=== PATIENT | female | born 1995 | race Caucasian/White ===

== ENCOUNTER 2019-05-26 22:26 | Inpatient (IN) | payer BC ==
[~2019-05-26 22:26] MED LIST: Lidocaine 1.5% with EPINEPHrine 1:200,000 5 ML Amp ONE
[2019-05-26] MEDS ORDERED: Nalbuphine 10 MG/ML Syringe IVPUSH PRN (23:26)
[2019-05-26] MEDS ORDERED: Sodium Chloride 0.9% 10 ML Syringe FLUSH PRN (23:26)
[2019-05-26] MEDS ORDERED: Oxytocin/Lactated Ringers 10 UNIT/1,000 ML BAG IV SCH (23:30)
[2019-05-27] MEDS ORDERED: Ampicillin 2 GM in Sodium Chloride 0.9% 100 ML IV ONE ×2
[2019-05-27] MEDS: Lactated Ringers 1,000 ML IV SCH ×3 (00:39→06:45)
[2019-05-27] MEDS ORDERED: Bupivacaine/fentaNYL/NS 100 ML Bag EPIDUR PRN (04:10)
[2019-05-27] MEDS ORDERED: fentaNYL 100 MCG/2 ML SDV EPIDUR PRN (04:10)
[2019-05-27] MEDS ORDERED: diphenhydrAMINE 50 MG/ML SDV IVPUSH PRN (04:10)
[2019-05-27] MEDS ORDERED: ePHEDrine 50 MG/ML SDV IVPUSH PRN (04:10)
[2019-05-27] MEDS: Ampicillin 1 GM in Sodium Chloride 0.9% 100 ML IV SCH ×3 (04:14→12:08)
--- NOTE | 2019-05-27 04:50 | PCM.PREANE ---
Preanesthetic Assessment - Anesthesia/Transfusion/Family Hx Anesthesia History: Prior Anesthesia Without Reaction Transfusion History: No Prior Transfusion(s) - Review of Systems General: No Symptoms Pulmonary: No Symptoms Cardiovascular: No Symptoms Gastrointestinal: No Symptoms Neurological: No Symptoms Other: Reports: None - Physical Assessment Vital Signs: Last Vital Signs Temp 98.6 F 05/26/19 23:26 Pulse 86 05/26/19 23:26 Resp 14 05/26/19 23:26 BP 119/73 05/26/19 23:26 Pulse Ox 100 05/26/19 23:26 Height: 1.65 m Weight: 109.769 kg ASA Class: 3 (morbid obesity) Mental Status: Alert & Oriented x3 Airway Class: Mallampati = 2 Dentition: Reports: Normal Dentition Thyro-Mental Finger Breadths: 3 Mouth Opening Finger Breadths: 3 ROM/Head Extension: Full Lungs: Clear to Auscultation Cardiovascular: Regular Rate, Regular Rhythm - Lab Values: Laboratory Last Values WBC 13.95 K/mm3 (3.98-10.04) H 05/27/19 00:06 RBC 4.88 M/mm3 (3.98-5.22) 05/27/19 00:06 Hgb 13.4 gm/dl (11.2-15.7) 05/27/19 00:06 Hct 41.3 % (34.1-44.9) 05/27/19 00:06 MCV 84.6 fl (79.4-94.8) 05/27/19 00:06 MCH 27.5 pg (25.6-32.2) 05/27/19 00:06 MCHC 32.4 g/dl (32.2-35.5) 05/27/19 00:06 RDW Std Deviation 41.9 fL (36.4-46.3) 05/27/19 00:06 Plt Count 193 K/mm3 (182-369) 05/27/19 00:06 MPV 10.1 fl (9.4-12.3) 05/27/19 00:06 Neut % (Auto) 74.5 % (34.0-71.1) H 05/27/19 00:06 Lymph % (Auto) 16.7 % (19.3-51.7) L 05/27/19 00:06 Swisher % (Auto) 7.6 % (4.7-12.5) 05/27/19 00:06 Eos % (Auto) 0.7 (0.7-5.8) 05/27/19 00:06 Baso % (Auto) 0.1 % (0.1-1.2) 05/27/19 00:06 Neut # (Auto) 10.39 K/mm3 (1.56-6.13) H 05/27/19 00:06 Lymph # (Auto) 2.33 K/mm3 (1.18-3.74) 05/27/19 00:06 Swisher # (Auto) 1.06 K/mm3 (0.24-0.36) H 05/27/19 00:06 Eos # (Auto) 0.10 K/mm3 (0.04-0.36) 05/27/19 00:06 Baso # (Auto) 0.02 K/mm3 (0.01-0.08) 05/27/19 00:06 - Allergies Allergies/Adverse Reactions: Allergies Allergy/AdvReac Type Severity Reaction Status Date / Time No Known Allergies Allergy Verified 05/26/19 23:31 - Acknowledgements Anesthesia Type Planned: Epidural Pt an Appropriate Candidate for the Planned Anesthesia: Yes Alternatives and Risks of Anesthesia Discussed w Pt/Guardian: Yes Pt/Guardian Understands and Agrees with Anesthesia Plan: Yes PreAnesthesia Questionnaire HEENT History: Reports: Impaired Vision Other HEENT History: wears glasses Cardiovascular History: Reports: None Respiratory History: Reports: None Gastrointestinal History: Reports: None Genitourinary History: Reports: None 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 Took Prozac until 2018 and then d/c 'd med. During late , requested a refill secondary to some "moodiness " (per pt) and feeling anxious and isolating, and med prescribed for pt to begin taking after delivery by Dr. Guillermo. Pt denies any SI, or thoughts of harming self or others. Endocrine/Metabolic History: Reports: None, Obesity/BMI 30+ (morbid obesity) Hematologic History: Reports: None Oncologic (Cancer) History: Reports: None Dermatologic History: Reports: Other (See Below) Other Dermatologic History: hx acne - Infectious Disease History Other Infectious Disease History: GBS + - Past Surgical History Head Surgeries/Procedures: Reports: None HEENT Surgical History: Reports: Oral Surgery Other HEENT Surgeries/Procedures: wisdom teeth extracted Cardiovascular Surgical History: Reports: None Respiratory Surgical History: Reports: None GI Surgical History: Reports: None Female Surgical History: Reports: D&C Other Female Surgeries/Procedures: 03/2018 SAB followed by D&C Endocrine Surgical History: Reports: None Neurological Surgical History: Reports: None Musculoskeletal Surgical History: Reports: None Oncologic Surgical History: Reports: None Dermatological Surgical History: Reports: None - SUBSTANCE USE Smoking Status *Q: Never Smoker Second Hand Smoke Exposure: No Recreational Drug Use History: No - CURRENT (IN HOUSE) MEDS Current Meds: Current Medications Diphenhydramine HCl (Benadryl) 25 mg IVPUSH Q6H PRN PRN Reason: pruritis Ephedrine Sulfate (Ephedrine Sulfate) 5 mg IVPUSH ASDIRECTED PRN PRN Reason: Hypotension Fentanyl (Sublimaze) 100 mcg EPIDUR Q3H PRN PRN Reason: Pain Fentanyl/Bupivacaine HCl (Fentanyl/Bupivacaine/Ns 2 Mcg-0.125% 100 Ml) 100 ml EPIDUR ASDIRECTED PRN PRN Reason: Pain Lactated Ringer's (Ringers, Lactated) 1,000 mls @ 100 mls/hr IV ASDIRECTED SANCHEZ Last Infusion: 05/27/19 04:10 Dose: 999 mls/hr Oxytocin/Lactated Ringer's (Pitocin In Lr 10 Units/1,000 Ml) 10 unit in 1,000 mls @ 500 mls/hr IV .CONTINUOUS [facility] Ampicillin Sodium 1 gm/ Sodium (Chloride) 100 mls @ 200 mls/hr IV Q4H [facility] Last Admin: 05/27/19 04:14 Dose: 200 mls/hr Nalbuphine HCl (Nubain) 10 mg IVPUSH Q2H PRN PRN Reason: Pain Sodium Chloride (Saline Flush) 10 ml FLUSH ASDIRECTED PRN PRN Reason: Keep Vein Open Discontinued Medications Ampicillin Sodium 2 gm/ Sodium (Chloride) 100 mls @ 200 mls/hr IV ONETIME ONE Stop: 05/27/19 00:29 Last Admin: 05/27/19 00:42 Dose: 200 mls/hr
--- NOTE | 2019-05-27 07:43 | PCM.LDHP ---
L&D History of Present Illness - General Date of Service: 05/27/19 Admit Problem/Dx: Patient Status Order with Admit Dx/Problem 05/26/19 22:42 Patient Status [ADT] Routine 05/26/19 23:26 Patient Status [ADT] Routine Admission Diagnosis/Problem Admission Diagnosis/Problem Source of Information: Patient History Limitations: Reports: No Limitations - History of Present Illness Introduction:: Patient is a 23 y/o currently at 37 5/7 wks who presented late last night in labor. Contractions started yesterday PM around 1900. When in L&D around 2300 cervix was about 5 cm dilated. 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 : 2 Para: 0 LMP (Approximate): Psychiatric History: Reports: Anxiety, Depression Endocrine/Metabolic History: Reports: Obesity/BMI 30+ - Past Surgical History HEENT Surgical History: Reports: Oral Surgery Other HEENT Surgeries/Procedures: wisdom teeth extracted Female Surgical History: Reports: D&C Other Female Surgeries/Procedures: 03/2018 SAB followed by D&C Social & Family History - Family History Family Medical History: Noncontributory - Tobacco Use Smoking Status *Q: Never Smoker Second Hand Smoke Exposure: No - Caffeine Use Caffeine Use: Reports: Coffee Other Caffeine Use: 1 cup per day - Alcohol Use Alcohol Use History: No - Recreational Drug Use Recreational Drug Use: No H&P Review of Systems - Review of Systems: Review Of Systems: See Below General: Reports: No Symptoms Pulmonary: Reports: No Symptoms Cardiovascular: Reports: No Symptoms Gastrointestinal: Reports: No Symptoms Genitourinary: Reports: No Symptoms Musculoskeletal: Reports: No Symptoms Psychiatric: Reports: No Symptoms Neurological: Reports: No Symptoms L&D Exam - Exam Exam: See Below - Vital Signs Vital Signs: Last Vital Signs Temp 37.0 C 05/26/19 23:26 Pulse 86 05/26/19 23:26 Resp 14 05/26/19 23:26 BP 119/73 05/26/19 23:26 Pulse Ox 100 05/26/19 23:26 Weight: 109.769 kg - OB Specific Contraction Intensity: Moderate Movement: Active Heart Tones: Present Heart Tones per Min: 150 Heart Rate (FHR) Variability: Moderate (6-25 bmp) Presentation: Vertex - Sarabia Score Sarabia Score Cervix Position: Anterior Sarabia Score Consistency: Soft Sarabia Score Effacement: >80% Sarabia Score Dilation: > 5 cm Sarabia Score 's Station: -1 ,0 Sarabia Score Total: 12 - Exam General: Alert, Oriented, Cooperative Lungs: Clear to Auscultation, Normal Respiratory Effort Cardiovascular: Regular Rate, Regular Rhythm GI/Abdominal Exam: Soft, Non-Tender Genitourinary: Normal external exam Extremities: Normal Inspection Skin: Warm, Dry, Intact - Patient Data Lab Results Last 24 hrs: Laboratory Results - last 24 hr 05/27/19 Range/Units 00:06 WBC 13.95 H (3.98-10.04) K/mm3 RBC 4.88 (3.98-5.22) M/mm3 Hgb 13.4 (11.2-15.7) gm/dl Hct 41.3 (34.1-44.9) % MCV 84.6 (79.4-94.8) fl MCH 27.5 (25.6-32.2) pg MCHC 32.4 (32.2-35.5) g/dl RDW Std Deviation 41.9 (36.4-46.3) fL Plt Count 193 (182-369) K/mm3 MPV 10.1 (9.4-12.3) fl Neut % (Auto) 74.5 H (34.0-71.1) % Lymph % (Auto) 16.7 L (19.3-51.7) % [place]cer % (Auto) 7.6 (4.7-12.5) % Eos % (Auto) 0.7 (0.7-5.8) Baso % (Auto) 0.1 (0.1-1.2) % Neut # (Auto) 10.39 H (1.56-6.13) K/mm3 Lymph # (Auto) 2.33 (1.18-3.74) K/mm3 [place] # (Auto) 1.06 H (0.24-0.36) K/mm3 Eos # (Auto) 0.10 (0.04-0.36) K/mm3 Baso # (Auto) 0.02 (0.01-0.08) K/mm3 Result Diagrams: 05/27/19 00:06 - Problem List (1) 37 weeks gestation of SNOMED Code(s): 92987407 ICD Code: Z3A.37 - 37 WEEKS GESTATION OF Status: Acute Current Visit: Yes (2) Normal labor SNOMED Code(s): 72869623 ICD Code: O80 - ENCOUNTER FOR FULL-TERM UNCOMPLICATED DELIVERY; Z37.9 - OUTCOME OF DELIVERY, UNSPECIFIED Status: Acute Current Visit: Yes (3) Rh negative state in antepartum period SNOMED Code(s): 480089894 ICD Code: O26.899 - OTH RELATED CONDITIONS, UNSPECIFIED TRIMESTER; Z67.91 - UNSPECIFIED BLOOD TYPE, RH NEGATIVE Status: Acute Current Visit: Yes (4) GBS (group B Streptococcus carrier), +RV culture, currently SNOMED Code(s): 1306655880034, 149593635, 5816452815662 ICD Code: O99.820 - STREPTOCOCCUS B CARRIER STATE COMPLICATING Status: Acute Current Visit: Yes Problem List Initiated/Reviewed/Updated: Yes Orders Last 24hrs: Active Orders 24 hr Category Date Time Status Patient Status [ADT] Routine ADT 05/26/19 23:26 Active Activity as Tolerated [RC] PFP Care 05/26/19 23:26 Active Communication Order [RC] ASDIRECTED Care 05/26/19 23:26 Active Heart Tones [RC] ASDIRECTED Care 05/26/19 23:27 Active Notify Provider [RC] ASDIRECTED Care 05/27/19 04:10 Active Notify Provider [RC] PFP Care 05/26/19 23:26 Active Notify Provider [RC] PRN Care 05/26/19 23:26 Active Peripheral IV Care [RC] Q2HR Care 05/26/19 23:27 Active Vital Signs [RC] 09,15,21,03 Care 05/26/19 23:26 Active Regular Diet [DIET] Diet 05/26/19 Breakfast Active RAPID PLASMA REAGIN,RPR [CHEM] Routine Lab 05/26/19 23:26 Received Ampicillin 1 gm Med 05/27/19 04:00 Active Sodium Chloride 0.9% [Normal Saline] 100 ml IV Q4H Bupivacaine/fentaNYL/NS [fentaNYL/Bupivacaine/NS 2 MCG- Med 05/27/19 04:10 Active 0.125% 100 ML] 100 ml EPIDUR ASDIRECTED PRN Lactated Ringers [Ringers, Lactated] 1,000 ml Med 05/26/19 23:30 Active IV ASDIRECTED Nalbuphine [Nubain] Med 05/26/19 23:26 Active 10 mg IVPUSH Q2H PRN Oxytocin/Lactated Ringers [Pitocin in LR 10 Units/1,000 Med 05/26/19 23:30 Active ML] 10 unit in 1,000 ml IV .CONTINUOUS Sodium Chloride 0.9% [Saline Flush] Med 05/26/19 23:26 Active 10 ml FLUSH ASDIRECTED PRN diphenhydrAMINE [Benadryl] Med 05/27/19 04:10 Active 25 mg IVPUSH Q6H PRN ePHEDrine [ePHEDrine sulfate] Med 05/27/19 04:10 Active 5 mg IVPUSH ASDIRECTED PRN fentaNYL [Sublimaze] Med 05/27/19 04:10 Active 100 mcg EPIDUR Q3H PRN Electronic Heart Tones Ext w TOCO [WOMSER] Oth 05/26/19 23:26 Ordered Routine Electronic Heart Tones Internal [WOMSER] Per Unit Oth 05/26/19 23:26 Ordered Routine Peripheral IV Insertion Adult [OM.PC] Routine Oth 05/26/19 23:26 Ordered Resuscitation Status Routine Resus Stat 05/26/19 22:41 Ordered Medication Orders Diphenhydramine HCl (Benadryl) 25 mg IVPUSH Q6H PRN PRN Reason: pruritis Ephedrine Sulfate (Ephedrine Sulfate) 5 mg IVPUSH ASDIRECTED PRN PRN Reason: Hypotension Fentanyl (Sublimaze) 100 mcg EPIDUR Q3H PRN PRN Reason: Pain Last Admin: 05/27/19 05:21 Dose: 100 mcg Fentanyl/Bupivacaine HCl (Fentanyl/Bupivacaine/Ns 2 Mcg-0.125% 100 Ml) 100 ml EPIDUR ASDIRECTED PRN PRN Reason: Pain Last Admin: 05/27/19 05:40 Dose: 100 ml Lactated Ringer's (Ringers, Lactated) 1,000 mls @ 100 mls/hr IV ASDIRECTED SANCHEZ Last Admin: 05/27/19 06:45 Dose: 100 mls/hr Infusion: 05/27/19 06:45 Dose: 500 mls/hr Infusion: 05/27/19 05:45 Dose: 500 mls/hr Admin: 05/27/19 05:15 Dose: 999 mls/hr Infusion: 05/27/19 04:49 Dose: 999 mls/hr Infusion: 05/27/19 04:10 Dose: 999 mls/hr Admin: 05/27/19 00:39 Dose: 100 mls/hr Oxytocin/Lactated Ringer's (Pitocin In Lr 10 Units/1,000 Ml) 10 unit in 1,000 mls @ 500 mls/hr IV .CONTINUOUS [facility] Ampicillin Sodium 1 gm/ Sodium (Chloride) 100 mls @ 200 mls/hr IV Q4H [facility] Last Admin: 05/27/19 04:14 Dose: 200 mls/hr Nalbuphine HCl (Nubain) 10 mg IVPUSH Q2H PRN PRN Reason: Pain Sodium Chloride (Saline Flush) 10 ml FLUSH ASDIRECTED PRN PRN Reason: Keep Vein Open Assessment/Plan Comment:: * Labs done on admission * GBS positive, has been receiving ampicillin * Epidural in place * Patient just found to be 9 cm dilated. AROM done. Continue present management * Anticipate * Assess baby blood type following delivery to assess if Rhogam noted
[2019-05-27] MEDS ORDERED: Oxytocin/Lactated Ringers 10 UNIT/1,000 ML BAG IV SCH (10:00)
--- NOTE | 2019-05-27 13:20 | PCM.DEL ---
L & D Note - General Info Date of Service: 05/27/19 - Delivery Note Labor: Augmented by Oxytocin Delivery Outcome: Livebirth Delivery Method: Spontaneous Vaginal Delivery-Single Presentation: Right Occiput Anterior (LOUISE) Nuchal Cord: None Anesthesia Type: Epidural Amniotic Fluid Description: Clear Episiotomy Type: None Laceration: 2nd Degree, Labial (right), Perineal Suture type: Vicryl Suture size: 2-0 Placenta: Intact, Spontaneous Cord: 3 Vessels Estimated Blood Loss: 200 Resuscitation Needed: Yes [place]: Bulb Syringe, Stimulated, Warmed, Warmer Used Delivery Comments (Free Text/Narrative):: Patient found to be complete and began pushing. With maternal pushing effort head delivered from an LOUISE presentation. No nuchal cord present. With gentle downward traction the shoulders and body delivered. placed on maternal abdomen. Cord clamped and cut. Cord blood obtained. Placenta allowed time to separate and expelled intact. Inspection of the perineum showed a 2nd degree perineal laceration and also a right labia tear. These were both reapproximated with running 2-0 vicryl sutures. - General Info Date of Service: 05/27/19 - Patient Data Vitals - Most Recent: Last Vital Signs Temp 37.0 C 05/26/19 23:26 Pulse 86 05/26/19 23:26 Resp 14 05/26/19 23:26 BP 119/73 05/26/19 23:26 Pulse Ox 100 05/26/19 23:26 Weight - Most Recent: 109.769 kg I&O - Last 24 Hours: Intake & Output 05/26/19 05/27/19 05/27/19 22:59 06:59 14:59 Intake Total 2200 Balance 2200 - Problem List & Annotations (1) 37 weeks gestation of SNOMED Code(s): 85457502 Code(s): Z3A.37 - 37 WEEKS GESTATION OF Status: Acute Current Visit: Yes (2) Normal labor SNOMED Code(s): 37723388 Code(s): O80 - ENCOUNTER FOR FULL-TERM UNCOMPLICATED DELIVERY; Z37.9 - OUTCOME OF DELIVERY, UNSPECIFIED Status: Acute Current Visit: Yes (3) Rh negative state in antepartum period SNOMED Code(s): 010198056 Code(s): O26.899 - OTH RELATED CONDITIONS, UNSPECIFIED TRIMESTER; Z67.91 - UNSPECIFIED BLOOD TYPE, RH NEGATIVE Status: Acute Current Visit: Yes (4) GBS (group B Streptococcus carrier), +RV culture, currently SNOMED Code(s): 4023095032790, 217363502, 9810206260986 Code(s): O99.820 - STREPTOCOCCUS B CARRIER STATE COMPLICATING Status: Acute Current Visit: Yes (5) Vaginal delivery SNOMED Code(s): 943433807 Code(s): O80 - ENCOUNTER FOR FULL-TERM UNCOMPLICATED DELIVERY Status: Acute Current Visit: Yes - Problem List Review Problem List Initiated/Reviewed/Updated: Yes - My Orders Last 24 Hours: My Active Orders 05/26/19 22:41 Resuscitation Status Routine 05/26/19 23:26 Patient Status [ADT] Routine Activity as Tolerated [RC] PFP Communication Order [RC] ASDIRECTED Notify Provider [RC] PFP Notify Provider [RC] PRN Vital Signs [RC] 09,15,21,03 RAPID PLASMA REAGIN,RPR [CHEM] Routine Nalbuphine [Nubain] 10 mg IVPUSH Q2H PRN Sodium Chloride 0.9% [Saline Flush] 10 ml FLUSH ASDIRECTED PRN Electronic Heart Tones Ext w TOCO [WOMSER] Routine Electronic Heart Tones Internal [WOMSER] Per Unit Routine Peripheral IV Insertion Adult [OM.PC] Routine 05/26/19 23:27 Heart Tones [RC] ASDIRECTED Peripheral IV Care [RC] Q2HR 05/26/19 23:30 Lactated Ringers [Ringers, Lactated] 1,000 ml IV ASDIRECTED Oxytocin/Lactated Ringers [Pitocin in LR 10 Units/1,000 ML] 10 unit in 1,000 ml IV .CONTINUOUS 05/27/19 04:00 Ampicillin 1 gm Sodium Chloride 0.9% [Normal Saline] 100 ml IV Q4H 05/27/19 10:00 Oxytocin/Lactated Ringers [Pitocin in LR 10 Units/1,000 ML] 10 unit in 1,000 ml IV TITRATE - Assessment Assessment:: PPD#0 - Plan Plan:: * Routine cares * Bottle feeding * Assess baby blood type following delivery to assess if Rhogam noted * Discharge home in 1-2 days
[2019-05-27] MEDS ORDERED: Ibuprofen 600 MG Tab PO PRN (13:33)
[2019-05-27] MEDS ORDERED: Docusate Sodium 100 MG Cap PO PRN (13:33)
[2019-05-27] MEDS ORDERED: Witch Hazel Medicated Pads 40/Jar TOP PRN (13:33)
[2019-05-27] MEDS ORDERED: Acetaminophen 325 MG Tab PO PRN (13:33)
[2019-05-27] MEDS: Benzocaine/Menthol 20%-0.5% Spray 56 GM Canister TOP PRN (15:06)
--- NOTE | 2019-05-28 07:35 | PCM.DCSUM1 ---
Discharge Summary - Discharge Data Discharge Date: 05/28/19 Discharge Disposition: Home, Self-Care 01 Condition: Good - Referral to Home Health Primary Care Physician: Scarlett Guillermo MD - Discharge Diagnosis/Problem(s) (1) 37 weeks gestation of SNOMED Code(s): 99112073 ICD Code: Z3A.37 - 37 WEEKS GESTATION OF Status: Acute Current Visit: Yes (2) Normal labor SNOMED Code(s): 43305096 ICD Code: O80 - ENCOUNTER FOR FULL-TERM UNCOMPLICATED DELIVERY; Z37.9 - OUTCOME OF DELIVERY, UNSPECIFIED Status: Acute Current Visit: Yes (3) Rh negative state in antepartum period SNOMED Code(s): 499122286 ICD Code: O26.899 - OTH RELATED CONDITIONS, UNSPECIFIED TRIMESTER; Z67.91 - UNSPECIFIED BLOOD TYPE, RH NEGATIVE Status: Acute Current Visit: Yes (4) GBS (group B Streptococcus carrier), +RV culture, currently SNOMED Code(s): 1985662253787, 610505712, 2124207561530 ICD Code: O99.820 - STREPTOCOCCUS B CARRIER STATE COMPLICATING Status: Acute Current Visit: Yes (5) Vaginal delivery SNOMED Code(s): 220321739 ICD Code: O80 - ENCOUNTER FOR FULL-TERM UNCOMPLICATED DELIVERY Status: Acute Current Visit: Yes - Patient Summary/Data Complications: None Consults: None Recommended Follow-up Testing/Procedures: Follow up in 3 weeks for check Hospital Course: 23 y/o woman presented at 37 5/7 wks in labor. Progressed well to 9 cm dilated and then had a slight arrest. Was started on pitocin and progressed then to complete dilation and underwent an uncomplicated . SEe delivery note. did well and was discharged home on PPD#1 - Patient Instructions Diet: Regular Diet as Tolerated Activity: As Tolerated Activity, Other: Pelvic rest for 6 weeks Driving: May Drive Today Showering/Bathing: May Shower Showering/Bathing, Other: May bathe Notify Provider of: Fever, Increased Pain, Swelling and Redness, Drainage, Nausea and/or Vomiting - Discharge Plan *PRESCRIPTION DRUG MONITORING PROGRAM REVIEWED*: No *COPY OF PRESCRIPTION DRUG MONITORING REPORT IN PATIENT NANI: No Home Medications: Home Meds Acetaminophen [Tylenol] 650 mg PO Q4H PRN tablet 05/27/19 [Rx] Docusate Sodium [Colace] 100 mg PO BID PRN cap 05/27/19 [Rx] FLUoxetine HCl [Prozac] 20 mg PO DAILY 05/27/19 [History] Ibuprofen [Motrin] 600 mg PO Q6H PRN tablet 05/27/19 [Rx] Vit,Billy 74/Iron/Folic [ Low Iron Tablet] 1 each PO DAILY [History] Patient Handouts: How To Prepare Formula, Care After Vaginal Delivery Referrals: Scarlett Guillermo MD [Primary Care Provider] - (3 weeks for check ) - Discharge Summary/Plan Comment DC Time >30 min.: No - Patient Data Vitals - Most Recent: Last Vital Signs Temp 36.7 C 05/28/19 04:45 Pulse 90 05/28/19 04:45 Resp 14 05/28/19 04:45 BP 122/51 L 05/28/19 04:45 Pulse Ox 99 05/28/19 04:45 Weight - Most Recent: 109.769 kg I&O - Last 24 hours: Intake & Output 05/27/19 05/28/19 05/28/19 22:59 06:59 14:59 Intake Total 1700 1 Balance 1700 1 Lab Results - Last 24 hrs: Laboratory Results - last 24 hr 05/27/19 Range/Units 20:18 Blood Type O NEGATIVE Screen 1 ros/5 flds - neg RhIG Candidate? Yes Rhogam Indicated Yes, baby rh pos H Med Orders - Current: Current Medications Acetaminophen (Tylenol) 650 mg PO Q4H PRN PRN Reason: mild pain or fever Benzocaine/Menthol (Dermoplast Pain Relief [place]) 0 gm TOP ASDIRECTED PRN PRN Reason: Perineal Comfort Measure Last Admin: 05/27/19 15:06 Dose: 1 can Docusate Sodium (Colace) 100 mg PO BID PRN PRN Reason: Constipation Fluoxetine HCl (Prozac) 20 mg PO DAILY SANCHEZ Ibuprofen (Motrin) 600 mg PO Q6H PRN PRN Reason: Mild pain or fever Last Admin: 05/28/19 07:25 Dose: 600 mg [place] (Tucks) 1 pad TOP ASDIRECTED PRN PRN Reason: Perineal Comfort Measure Last Admin: 05/27/19 15:06 Dose: 1 jar Discontinued Medications Diphenhydramine HCl (Benadryl) 25 mg IVPUSH Q6H PRN PRN Reason: pruritis Ephedrine Sulfate (Ephedrine Sulfate) 5 mg IVPUSH ASDIRECTED PRN PRN Reason: Hypotension Fentanyl (Sublimaze) 100 mcg EPIDUR Q3H PRN PRN Reason: Pain Last Admin: 05/27/19 05:21 Dose: 100 mcg Fentanyl/Bupivacaine HCl (Fentanyl/Bupivacaine/Ns 2 Mcg-0.125% 100 Ml) 100 ml EPIDUR ASDIRECTED PRN PRN Reason: Pain Last Admin: 05/27/19 05:40 Dose: 100 ml Lactated Ringer's (Ringers, Lactated) 1,000 mls @ 100 mls/hr IV ASDIRECTED SANCHEZ Last Admin: 05/27/19 06:45 Dose: 100 mls/hr Oxytocin/Lactated Ringer's (Pitocin In Lr 10 Units/1,000 Ml) 10 unit in 1,000 mls @ 500 mls/hr IV .CONTINUOUS [facility] Ampicillin Sodium 2 gm/ Sodium (Chloride) 100 mls @ 200 mls/hr IV ONETIME ONE Stop: 05/27/19 00:29 Last Admin: 05/27/19 00:42 Dose: 200 mls/hr Ampicillin Sodium 1 gm/ Sodium (Chloride) 100 mls @ 200 mls/hr IV Q4H [facility] Last Admin: 05/27/19 12:08 Dose: 200 mls/hr Oxytocin/Lactated Ringer's (Pitocin In Lr 10 Units/1,000 Ml) 10 unit in 1,000 mls @ 12 mls/hr IV TITRATE SANCHEZ; Protocol Last Admin: 05/27/19 09:55 Dose: 2 munits/min, 12 mls/hr Nalbuphine HCl (Nubain) 10 mg IVPUSH Q2H PRN PRN Reason: Pain Sodium Chloride (Saline Flush) 10 ml FLUSH ASDIRECTED PRN PRN Reason: Keep Vein Open
--- NOTE | 2019-05-28 07:35 | PCM.PNPP ---
- General Info Date of Service: 05/28/19 Functional Status: Reports: Pain Controlled, Tolerating Diet, Ambulating, Urinating - Review of Systems General: Reports: No Symptoms Pulmonary: Reports: No Symptoms Cardiovascular: Reports: No Symptoms Gastrointestinal: Reports: No Symptoms Genitourinary: Reports: No Symptoms Musculoskeletal: Reports: No Symptoms Neurological: Reports: No Symptoms - Patient Data Vital Signs - Most Recent: Last Vital Signs Temp 36.7 C 05/28/19 04:45 Pulse 90 05/28/19 04:45 Resp 14 05/28/19 04:45 BP 122/51 L 05/28/19 04:45 Pulse Ox 99 05/28/19 04:45 Weight - Most Recent: 109.769 kg I&O - Last 24 Hours: Intake & Output 05/27/19 05/28/19 05/28/19 22:59 06:59 14:59 Intake Total 1700 1 Balance 1700 1 Lab Results - Last 24 Hours: Laboratory Results - last 24 hr 05/27/19 Range/Units 20:18 Blood Type O NEGATIVE Screen 1 ros/5 flds - neg RhIG Candidate? Yes Rhogam Indicated Yes, baby rh pos H Med Orders - Current: Current Medications Acetaminophen (Tylenol) 650 mg PO Q4H PRN PRN Reason: mild pain or fever Benzocaine/Menthol (Dermoplast Pain Relief [place]) 0 gm TOP ASDIRECTED PRN PRN Reason: Perineal Comfort Measure Last Admin: 05/27/19 15:06 Dose: 1 can Docusate Sodium (Colace) 100 mg PO BID PRN PRN Reason: Constipation Fluoxetine HCl (Prozac) 20 mg PO DAILY SANCHEZ Ibuprofen (Motrin) 600 mg PO Q6H PRN PRN Reason: Mild pain or fever Last Admin: 05/28/19 07:25 Dose: 600 mg Witch Allan (Tucks) 1 pad TOP ASDIRECTED PRN PRN Reason: Perineal Comfort Measure Last Admin: 05/27/19 15:06 Dose: 1 jar Discontinued Medications Diphenhydramine HCl (Benadryl) 25 mg IVPUSH Q6H PRN PRN Reason: pruritis Ephedrine Sulfate (Ephedrine Sulfate) 5 mg IVPUSH ASDIRECTED PRN PRN Reason: Hypotension Fentanyl (Sublimaze) 100 mcg EPIDUR Q3H PRN PRN Reason: Pain Last Admin: 05/27/19 05:21 Dose: 100 mcg Fentanyl/Bupivacaine HCl (Fentanyl/Bupivacaine/Ns 2 Mcg-0.125% 100 Ml) 100 ml EPIDUR ASDIRECTED PRN PRN Reason: Pain Last Admin: 05/27/19 05:40 Dose: 100 ml Lactated Ringer's (Ringers, Lactated) 1,000 mls @ 100 mls/hr IV ASDIRECTED SANCHEZ Last Admin: 05/27/19 06:45 Dose: 100 mls/hr Oxytocin/Lactated Ringer's (Pitocin In Lr 10 Units/1,000 Ml) 10 unit in 1,000 mls @ 500 mls/hr IV .CONTINUOUS SANCHEZ Ampicillin Sodium 2 gm/ Sodium (Chloride) 100 mls @ 200 mls/hr IV ONETIME ONE Stop: 05/27/19 00:29 Last Admin: 05/27/19 00:42 Dose: 200 mls/hr Ampicillin Sodium 1 gm/ Sodium (Chloride) 100 mls @ 200 mls/hr IV Q4H SANCHEZ Last Admin: 05/27/19 12:08 Dose: 200 mls/hr Oxytocin/Lactated Ringer's (Pitocin In Lr 10 Units/1,000 Ml) 10 unit in 1,000 mls @ 12 mls/hr IV TITRATE SANCHEZ; Protocol Last Admin: 05/27/19 09:55 Dose: 2 munits/min, 12 mls/hr Nalbuphine HCl (Nubain) 10 mg IVPUSH Q2H PRN PRN Reason: Pain Sodium Chloride (Saline Flush) 10 ml FLUSH ASDIRECTED PRN PRN Reason: Keep Vein Open - Interaction Infant Disposition, : in Room with Family Interaction: Holding Infant Feeding: Bottle Fed Infant Support Person: - Recovery Exam Fundal Tone: Firm Fundal Level: 1 Fingerbreadths Below Umbilicus Fundal Placement: Midline Lochia Amount: Small Lochia Color: Rubra/Red Perineum Description: Edematous, Other (see below) Other Perinuem Description: 2nd degree with repair Episiotomy/Laceration: Approximated Bladder Status: Nonpalpable, Voiding Urinary Elimination: Voided - Exam General: Alert, Oriented, Cooperative GI/Abdominal Exam: Soft, Non-Tender Extremities: Normal Inspection Skin: Warm, Dry, Intact - Problem List & Annotations (1) 37 weeks gestation of SNOMED Code(s): 13987596 Code(s): Z3A.37 - 37 WEEKS GESTATION OF Status: Acute Current Visit: Yes (2) Normal labor SNOMED Code(s): 39246538 Code(s): O80 - ENCOUNTER FOR FULL-TERM UNCOMPLICATED DELIVERY; Z37.9 - OUTCOME OF DELIVERY, UNSPECIFIED Status: Acute Current Visit: Yes (3) Rh negative state in antepartum period SNOMED Code(s): 899151536 Code(s): O26.899 - OTH RELATED CONDITIONS, UNSPECIFIED TRIMESTER; Z67.91 - UNSPECIFIED BLOOD TYPE, RH NEGATIVE Status: Acute Current Visit: Yes (4) GBS (group B Streptococcus carrier), +RV culture, currently SNOMED Code(s): 9700244643918, 395653675, 0101592548026 Code(s): O99.820 - STREPTOCOCCUS B CARRIER STATE COMPLICATING Status: Acute Current Visit: Yes (5) Vaginal delivery SNOMED Code(s): 465249131 Code(s): O80 - ENCOUNTER FOR FULL-TERM UNCOMPLICATED DELIVERY Status: Acute Current Visit: Yes - Problem List Review Problem List Initiated/Reviewed/Updated: Yes - My Orders Last 24 Hours: My Active Orders 05/27/19 13:33 Activity as Tolerated [RC] PER UNIT ROUTINE Vital Signs [RC] 09,15,21,03 Acetaminophen [Tylenol] 650 mg PO Q4H PRN Benzocaine/Menthol [Dermoplast Pain Relief [place]] See Dose Instructions TOP ASDIRECTED PRN Docusate Sodium [Colace] 100 mg PO BID PRN Ibuprofen [Motrin] 600 mg PO Q6H PRN witch Allan [Tucks] 1 pad TOP ASDIRECTED PRN Assess Lochia [WOMSER] Per Unit Routine Assess Uterine Involution [WOMSER] Per Unit Routine Breast Pump [WOMSER] Per Unit Routine Heat Therapy [OM.PC] PRN Ice Therapy [OM.PC] Per Unit Routine Perineal Care [OM.PC] Per Unit Routine Peripheral IV Discontinue [OM.PC] Routine Sitz Bath [OM.PC] Per Unit Routine 05/27/19 20:18 SCREEN [BBK] Routine RH IMMUNE GLOBULIN [BBK] Routine RHOGAM, [RHIG WORKUP, ] [BBK] Routine 05/27/19 Lunch Regular Diet [DIET] 05/28/19 09:00 FLUoxetine [PROzac] 20 mg PO DAILY 05/28/19 13:33 Heat Therapy [OM.PC] PRN - Assessment Assessment:: PPD#1 - Plan Plan:: * Routine cares * Bottle feeding * Baby Rh positive, Rhogam to be given * Discharge home today if Peds agrees
--- NOTE | 2019-05-28 08:43 | PCM48HPAN ---
Post Anesthesia Note - EVALUATION WITHIN 48HRS OF ANESTHETIC Vital Signs in Normal Range: Yes Patient Participated in Evaluation: Yes Respiratory Function Stable: Yes Airway Patent: Yes Cardiovascular Function Stable: Yes Hydration Status Stable: Yes Pain Control Satisfactory: Yes Nausea and Vomiting Control Satisfactory: Yes Mental Status Recovered: Yes Vital Signs: Last Vital Signs Temp 36.7 C 05/28/19 04:45 Pulse 90 05/28/19 04:45 Resp 14 05/28/19 04:45 BP 122/51 L 05/28/19 04:45 Pulse Ox 99 05/28/19 04:45
[2019-05-28] MEDS ORDERED: FLUoxetine 20 MG Cap PO SCH (09:00)
[2019-05-28] MEDS: Benzocaine/Menthol 20%-0.5% Spray 56 GM Canister TOP PRN (14:59)
== END 2019-05-28 15:02 | disposition home or self-care (01) | DRG 560 ==
LOC: JD.OBCHECK 22:26 → JD.OB 22:26 → JD.OBCHECK 23:26 → JD.OB 05-27 00:21 → OBSVTOIN 05-27 13:03 → JD.OB 05-27 13:21
PROVIDERS: ADMIT Obstetrics & Gynecology; ATTEND Obstetrics & Gynecology
PROC: 10E0XZZ Delivery of Products of Conception, External Approach (ICD-10-PCS; principal; 2019-05-27)
PROC: 0KQM0ZZ Repair Perineum Muscle, Open Approach (ICD-10-PCS; 2019-05-27)
PROC: 3E0R3BZ Introduction of Anesthetic Agent into Spinal Canal, Percutaneous Approach (ICD-10-PCS; 2019-05-27)
PROC: 00HU33Z Insertion of Infusion Device into Spinal Canal, Percutaneous Approach (ICD-10-PCS; 2019-05-27)
PROC: 3E0334Z Introduction of Serum, Toxoid and Vaccine into Peripheral Vein, Percutaneous Approach (ICD-10-PCS; 2019-05-27)
PROC: 10907ZC Drainage of Amniotic Fluid, Therapeutic from Products of Conception, Via Natural or Artificial Opening (ICD-10-PCS; 2019-05-27)
DX: O99.824 Streptococcus B carrier state complicating childbirth (principal); O70.1 Second degree perineal laceration during delivery; O26.893 Other specified pregnancy related conditions, third trimester; Z3A.37 37 weeks gestation of pregnancy; Z37.0 Single live birth; Z79.899 Other long term (current) drug therapy; Z67.41 Type O blood, Rh negative
CPT/HCPCS: 01967; 36415; 36430; 51702; 59025; 59409; 85025; 85461; 86592; 86850; 86870; 86900; 86901; A9270-GY; J0290; J2590; J2790; J3010; J7050; J7120

== ENCOUNTER 2022-03-16 09:32 | Inpatient (IN) | payer OTHER ==
[2022-03-16] MEDS ORDERED: Ampicillin 2 GM in Sodium Chloride 0.9% 100 ML IV ONE (09:52)
[2022-03-16] MEDS ORDERED: Nalbuphine 10 MG/0.5 ML Syringe IVPUSH PRN (09:52)
[2022-03-16] MEDS ORDERED: Ondansetron 4 MG/2 ML SDV IVPUSH PRN (09:52)
[2022-03-16] MEDS ORDERED: Sodium Chloride 0.9% 10 ML Syringe FLUSH PRN (09:52)
[2022-03-16] MEDS ORDERED: Oxytocin/Lactated Ringers 10 UNIT/1,000 ML BAG IV ONE (09:57)
[2022-03-16] MEDS ORDERED: Ampicillin 2 GM Vial ONE (09:57)
[2022-03-16] MEDS ORDERED: Lactated Ringers 1,000 ML ONE (09:57)
[2022-03-16] MEDS ORDERED: Sodium Chloride 0.9% 100 ML ONE (09:57)
[2022-03-16] MEDS ORDERED: Lactated Ringers 1,000 ML IV SCH (10:00)
[2022-03-16] MEDS ORDERED: Witch Hazel Medicated Pads 40/Jar TOP PRN (11:56)
[2022-03-16] MEDS ORDERED: Ibuprofen 600 MG Tab PO PRN (11:56)
[2022-03-16] MEDS ORDERED: Benzocaine/Menthol 20%-0.5% Spray 78 GM Cannister TOP PRN (11:56)
[2022-03-16] MEDS ORDERED: Docusate Sodium 100 MG Cap PO PRN (11:56)
[2022-03-16] MEDS ORDERED: Acetaminophen 325 MG Tab PO PRN (11:56)
[2022-03-16] MEDS ORDERED: Sodium Chloride 0.9% 10 ML Syringe FLUSH SCH (21:00)
[2022-03-17] MEDS: FLUoxetine 10 MG Cap PO SCH (09:57)
[2022-03-18] MEDS: FLUoxetine 10 MG Cap PO SCH (08:20)
== END 2022-03-18 09:50 | disposition home or self-care (01) | DRG 807 ==
LOC: JD.OBCHECK 09:32 → JD.OB 09:36 → JD.OBCHECK 09:51 → JD.OB 09:52 → OBSVTOIN 11:30 → JD.OB 11:31
PROVIDERS: ADMIT Obstetrics & Gynecology; ATTEND Obstetrics & Gynecology
PROC: 10E0XZZ Delivery of Products of Conception, External Approach (ICD-10-PCS; principal; 2022-03-16)
PROC: 10907ZC Drainage of Amniotic Fluid, Therapeutic from Products of Conception, Via Natural or Artificial Opening (ICD-10-PCS; 2022-03-16)
DX: O48.0 Post-term pregnancy (principal); Z37.0 Single live birth; O66.0 Obstructed labor due to shoulder dystocia; O99.214 Obesity complicating childbirth; O99.344 Other mental disorders complicating childbirth; F41.9 Anxiety disorder, unspecified; F32.A Depression, unspecified; O77.0 Labor and delivery complicated by meconium in amniotic fluid; Z3A.40 40 weeks gestation of pregnancy
CPT/HCPCS: 36415; 59025; 59409; 85025; 86592; 86850; 86900; 86901; J0290; J2590; J7120